=== PATIENT | female | born 1970 | race Caucasian/White ===

== ENCOUNTER 2017-06-15 18:20 | Emergency (ER) | payer SELFPAY ==
[2017-06-15 18:21] VITALS: BP 157/79; PULSE 88; RESP 16; TEMP 36.8; O2SAT 100; BMI 23.6
--- NOTE | 2017-06-15 19:29 | CT_ITS ---
STUDY: CT SOFT TISSUE NECK WITH CONTRAST REASON FOR EXAM: Female, 47 years old. Sensation of lump in throat and painful swallowing x2 days RADIATION DOSAGE (If Supplied By Facility): CTDIvol = ( 12.85 ) mGy, DLP = ( 686.76 ) mGycm TECHNIQUE: The patient was scanned in a multi-detector CT scanner. High resolution transaxial imaging was performed following intravenous administration of 75ML ml of Isovue 300 contrast material. Sagittal and coronal images were reconstructed. Individualized dose optimization techniques were used for this CT. COMPARISON: None. FINDINGS: Normal bilateral parotid glands. Normal bilateral retail coordinator spaces. Normal bilateral parapharyngeal spaces. Normal bilateral carotid spaces. Normal bilateral sublingual and submandibular glands and spaces. Normal visualized nasopharynx. Normal retropharyngeal space. Normal perivertebral space. Normal visualized bilateral faucial tonsils. The visualized tongue, tongue base and oropharynx are normal. The visualized cervical lymph nodes (levels I-) are within normal size limits, and maintain normal morphology. There is no demonstrated solid or cystic mass lesion. There is no abnormal contrast enhancement. Normal epiglottis, bilateral vallecula and hypopharynx. The pre-epiglottic and paraglottic adipose spaces are normal. Normal visualized bilateral piriform sinuses, aryepiglottic folds, vocal cords, and arytenoid-cricoid articulations. Normal subglottic trachea. Normal bilateral lobes of the thyroid gland. Normal visualized pulmonary apices. Normal visualized paranasal sinuses. There is multilevel degenerative changes of the cervical spine. CT/Soft Tissue Neck WITH Contrast IMPRESSION: Degenerative changes of the cervical spine. The study is otherwise unremarkable. Electronically Signed: Hugh Dewitt MD at 20:43 EDT , Service support ,
[2017-06-15 19:47] LABS: Absolute Lymphocyte Count 2.96 X10^3/ul (0.83-4.51); Absolute Neutrophil Count 10.6 X10^3/uL (2.0-7.7); Basophil# 0.03 X10^3/uL; Basophil% 0.2 % (0-1); Eosinophils% 1.4 % (0-5); Hematocrit 39.5 % (37-47); Hemoglobin 12.4 g/dl (12.0-15.0); Lymphocyte # 2.96 X10^3/ul (4.0); Mean Corp Hgb Conc 31.4 g/gl (32-36); Mean Corpuscular Volume 95.6 fL (81-99); Mean Platelet Vol. 9.2 fl (6.2-12.0); Monocyte# 0.99 X10^3/uL; Monocyte% 6.7 % (0-10); Neutrophil # 10.58 X10^3/uL (2.7-7.7); Neutrophil % 71.5 % (47-70); Platelet Count 326 K/mm3 (150-450); RBC Distribution Width SD 45.5 fl (35.1-43.9); Red Blood Count 4.13 M/mm3 (4.2-5.4); White Blood Count 14.8 K/mm3 (4.4-11.0)
[2017-06-15 20:01] LABS: Anion Gap 5 (5-15); BUN 19 mg/dL (7-18); BUN/Creat Ratio 26.3 RATIO (10-20); Calcium,Total 8.9 mg/dL (8.5-10.1); Chloride 107 mmol/L (98-107); Creatinine, Serum 0.72 mg/dL (0.55-1.02); EST Glomerular Filtration Rate 91 mL/min (>60); Est Glom Filt Rate - Afr Amer 110 mL/min (>60); Estimated Creatinine Clearance 81.62 ml/min; Glucose 86 mg/dL (74-106); Potassium 3.8 mmol/L (3.5-5.1); Sodium Level 143 mmol/L (136-145)
[2017-06-15 20:11] LABS: POSITIVE COUNT NO; POSITIVE DIFFERENTIAL NO; POSITIVE MORPHOLOGY NO
--- NOTE | 2017-06-15 20:49 | ED.VISSUMM ---
- ER Visit Summary Date of Service: 06/15/17 Chief Complaint: Throat pain History of Present Illness: The patient is a 47 F who states for the past 2 days she has felt like she has a lump in her throat. She notes particularly on the right side of her throat near her larynx is the source of this lump. She notes pain to palpation to the anterior sternal clinoid in this area. She is a long-term smoker. No recent weight loss. No difficulty swallowing though she does note that is uncomfortable. No fevers Physical Examination: Afebrile vital signs are stable Gen: Well-nourished well-developed Head: Normocephalic atraumatic Eyes: Perrl EOMI ENT: TMs clear no rhinorrhea moist mucous membranes A sedation of the face is Neck: Supple patient has tenderness palpation along the anterior sternocleidomastoid. I do not appreciate any pathologically enlarged lymph nodes. Patient is handling her secretions normally. There is no erythema. The thyroid does not feel enlarged CVS: Regular rate rhythm no murmurs normal S1-S2 Respiratory: No distress clear to auscultation bilaterally chest nontender Abdomen: Soft nontender nondistended normal bowel sounds no masses Back: Nontender Extremity: Nontender no edema Skin: Normal color no rash Neuro: alert orientated ?3 CN II-XII intact normal strength sensation reflexes gait cerebellar Psych: Normal affect normal mood Test Results: Basic labs showed a white count of 14.8. CT of the neck with IV contrast did not demonstrate any allergy to explain her symptoms. Emergency Department Course and Treatment: This could be lymphadenitis. Will place her on Keflex. Given her smoking history in the area of her discomfort that I cannot fully visualize on ocular inspection patient will referred to ENT. She is return if worsening Impression: 1. Anterior neck pain 2. Lymphadenitis This note was generated with [employer] dictation software. It may contain incorrect words, spelling, and punctuation that were not noted in review of the chart prior to signing ED Disposition - Plan for ED Patient: Disposition: Home or Assisted Living Chief Complaint: Sore Throat Instructions: ED Cervical Adenitis Abx Tx Prescriptions: Cephalexin [Keflex] 500 mg PO Q6 #40 cap Referrals: Care Physician,No Primary [Primary Care Provider] - Raj Rockwell MD [STAFF PHYSICIAN] - (CALL IN AM TO ARRANGE FOLLOW UP APPOINTMENT)
[2017-06-15 21:07] VITALS: BP 131/74; PULSE 76; RESP 16; O2SAT 98
== END 2017-06-15 21:08 | disposition home or self-care (01) ==
PROVIDERS: Emergency Provider Emergency Medicine
DX: M54.2 Cervicalgia (principal); I88.8 Other nonspecific lymphadenitis; F17.200 Nicotine dependence, unspecified, uncomplicated
CPT/HCPCS: 70491; 80048; 85025; 99283; J7030; J7040; Q9967; A4216

== ENCOUNTER 2019-10-16 17:46 | Emergency (ER) | payer SELFPAY ==
[2019-10-16 17:48] VITALS: BP 138/80; PULSE 98; RESP 16; TEMP 37.2; O2SAT 98; BMI 24.9
--- NOTE | 2019-10-16 18:23 | ED.DCSUM_ITS ---
History of Present Illness Chief Complaint: Rash Detail of Chief Complaint: Circular baldness noted right parietal area at this morning Informant: Patient Onset: Today Context: Sudden Onset Quality: Circular area of baldness Location: Right parietal region Current Severity: Mild Maximum Severity: Mild Worsened by: Nothing Relieved by: Nothing Associated Symptoms: None Narrative: Patient is a middle-age woman who presents because she noted there is a circular area of baldness right parietal area. She states she never noticed this prior she denies symptoms of hypothyroidism. She denies fever chills night sweats. She denies weight gain weight loss. She denies ocular, visual auditory symptoms. Prior similar symptoms: No Recent Illness/Hospitalization: No - Past Medical History (1) No significant past medical history Status: Acute Past Medical History - Allergies and Home Meds Allergies/Adverse Reactions: Allergies No Known Allergies Allergy (Verified 10/16/19 17:48) Primary Care Physician: Care Physician,No Primary [Primary Care Provider] - Prior records reviewed: No Surgical History: noncontributory Lives: With Family Smoking Status: Current every day smoker Alcohol: Rare Drugs: None Review of Systems General: Denies: Chills, Fever, Malaise, Subjective, Sweats Skin: Reports: - - 3 of baldness. Denies: Rash, Wounds Hematologic: Denies: Easy bruising, Easy bleeding Allergy: Denies: Uticaria Physical Exam Vital Signs/Narrative: Vital Signs Temp Pulse Resp BP Pulse Ox 10/16/19 17:48 98.9 F 98 16 138/80 H 98 Inital Vital Signs reviewed: Yes General: Well nourished, Well developed, No Acute Distress Head: Normocephalic, Atraumatic, - - Circular area of baldness right parietal region. No other abnormalities noted. Eyes: Perrl, EOMI. Negative for: Pale conjunctiva, Scleral icterus Cardiovascular: Regular rate, Regular rhythm Respiratory: No distress Neurological: Alert, Oriented x3, Cranial nerves II-XII grossly intact Psychological: Normal affect Diagnostic/Tx/Re-eval - Medical Decision Making Patient with some circular area of baldness scalp right side that represents tinea capitis. Patient was informed medicines that treat this need blood testing and monitoring. Since she does not have insurance and this is not a true emergency recommended follow-up at [facility] where she can get assistance for the medication needed and appropriate referral if needed. ED Disposition - Plan for ED Patient: Disposition: Home or Assisted Living Diagnosis: Tinea capitis Instructions: ED Dermatitis Ringworm Scalp Referrals: Care Physician,No Primary [Primary Care Provider] - Kathy Simmons [NON-STAFF] - 5-7 Days
== END 2019-10-16 18:43 | disposition home or self-care (01) ==
LOC: ED 18:41
PROVIDERS: Emergency Provider Emergency Medicine
DX: B35.0 Tinea barbae and tinea capitis (principal); F17.200 Nicotine dependence, unspecified, uncomplicated
CPT/HCPCS: 99282